=== PATIENT | male | born 1960 | race Caucasian/White ===

== ENCOUNTER 2018-08-29 10:28 | Outpatient (CLI) | payer OTHER ==
--- NOTE | 2018-08-29 12:02 | XRay Report ---
LEFT KNEE, 2 views: History: Pain in left knee. Normal bone mineralization. Moderate medial compartment joint space narrowing is identified. The lateral compartment and patellofemoral space are within normal limits. No evidence for fracture, bone lesion or large joint effusion. Small enthesophyte on the superior patella is noted. IMPRESSION: Mild to moderate osteoarthritic changes.
--- NOTE | 2018-08-29 12:03 | XRay Report ---
RIGHT ANKLE, 2 views: History: right ankle pain. Bone mineralization is normal. Chronic, healed fracture of the distal fibula is suspected. There are moderate osteoarthritic changes at the ankle joint. No evidence for acute fracture, bone lesion or osteochondral defect. Large plantar spur is identified. Mild soft tissue swelling or edema is also noted. IMPRESSION: Chronic, healed distal right fibular fracture. Osteoarthritis. Plantar spur.
== END 2018-08-29 10:29 | disposition home or self-care (01) ==
LOC: XRAY 10:28
PROVIDERS: ATTEND Internal Medicine
DX: M19.071 Primary osteoarthritis, right ankle and foot (principal); M17.12 Unilateral primary osteoarthritis, left knee